=== PATIENT | female | born 1970 | race Caucasian/White ===

== ENCOUNTER 2016-11-15 05:14 | Emergency (ER) | payer OTHER ==
[2016-11-15 05:28] VITALS: TEMP 98.9; BMI 31.9
[2016-11-15] MEDS ORDERED: SODIUM CHLORIDE 1,000 ML IV STA (05:46)
[2016-11-15] MEDS ORDERED: morphine CARPU-JECT 4 MG/1 ML DISP.SYRIN IVPUSH ONE (05:46)
[2016-11-15] MEDS ORDERED: METOCLOPRAMIDE HCL INJECTION 10 MG/2 ML VIAL IVPB ONE (05:46)
[2016-11-15] MEDS ORDERED: METOCLOPRAMIDE HCL INJECTION 10 MG/2 ML VIAL ONE (05:52)
[2016-11-15] MEDS ORDERED: morphine CARPU-JECT 4 MG/1 ML DISP.SYRIN ONE (05:52)
--- NOTE | 2016-11-15 05:53 | PDOC ---
History of Present Illness - General Chief Complaint: Nausea/Vomiting Stated Complaint: NAUSEA,VOMITING Time Seen by Provider: 11/15/16 05:30 History Source: Patient Exam Limitations: No Limitations - History of Present Illness Travel History: No Initial Comments: 11/15/16 05:47 46yo Female patient presents to ED c/o abd pain, n/v. Patient reports hx gastric bypass in 2007, and having complications since surgery. She states she had been symptom free since 2013 until last week. Patient drove to [facility] where she had the surgery. She states findings of inflammed intestine. Patient d/c'd to home. Patient now reports her symptoms began 4am this morning with vomiting and epigastric abd pain. Pain severity 8.5/10 per patient. Timing/Duration: reports: getting worse, intermittent Quality: reports: moderate Abdominal Pain Onset Location: reports: epigastric Pain Radiation: reports: no radiation Activities at Onset: reports: eating Aggravating Factors: worse with: None, Defecation, Eating, Emotional upset, Exertion, [place], Movement, Voiding, Change in position Alleviating Factors: worse with: None, Belching, Shallow Breathing, Defecation, Eating, Holding Breath, Passing Gas, Change in Position, Rest, Voiding, Vomiting Past History - Travel Traveled outside of the country in the last 30 days: No Close contact w/someone who was outside of country & ill: No - Past Medical History Allergies/Adverse Reactions: Allergies Allergy/AdvReac Type Severity Reaction Status Date / Time shellfish derived Allergy Severe Difficulty Verified 11/15/16 07:29 Breathing moxifloxacin HCl Allergy Intermediate Hives Verified 11/15/16 07:29 [From Avelox] Home Medications: Ambulatory Orders Lisinopril [Prinivil] 20 mg PO DAILY 08/10/16 Nifedipine [Procardia Xl] 90 mg PO DAILY 08/10/16 Tramadol HCl 50 mg PO TID #10 tablet MDD 4 11/15/16 Anemia: No (in past) Asthma: No Cancer: No Cardiac Disorders: No CVA: No COPD: No CHF: No Dementia: No Diabetes: No (pre gastric bypass 2007) GI Disorders: No (past pud) Disorders: No HTN: Yes Hypercholesterolemia: No Liver Disease: No Seizures: No Thyroid Disease: No - Surgical History Abdominal Surgery: Yes (gastric bypasss 2007) Appendectomy: No Cardiac Surgery: No Cholecystectomy: No Lung Surgery: No Neurologic Surgery: No Orthopedic Surgery: No - Psycho/Social/Smoking Cessation Hx Suicidal Ideation: No Smoking History: Current every day smoker Have you smoked in the past 12 months: Yes Number of Cigarettes Smoked Daily: 5 Information on smoking cessation initiated: No Hx Alcohol Use: No Drug/Substance Use Hx: No Substance Use Type: Marijuana Hx Substance Use Treatment: No Abd/GI Specific PMHX - Complaint Specific PMHX Colitis: No Diverticulitis: No Gall Bladder Disease: No GERD: No Hepatitis: No Irritable Bowel Synd (IBS): No Pancreatitis: No GI Ulcer Disease: No Review of Systems - Review of Systems Able to Perform ROS?: Yes Is the patient limited Guyanese proficient: No Constitutional: No: Fever Respiratory: No: Shortness of Breath Cardiac (ROS): No: Chest Pain ABD/GI: Yes: Nausea, Vomiting, Other (Epigastric abdominal pain). No: Diarrhea : No: Burning, Dysuria, Hematuria Musculoskeletal: No: Back Pain Integumentary: No: Rash Neurological: No: Seizure, Tremors All Other Systems: Reviewed and Negative *Physical Exam - Vital Signs Last Vital Signs Temp Pulse Resp BP Pulse Ox 98.9 F 104 H 18 137/78 96 11/15/16 05:16 11/15/16 05:16 11/15/16 05:16 11/15/16 05:16 11/15/16 05:16 - Physical Exam Comments: 11/15/16 05:55 Patient tearful during examination. General Appearance: Yes: Nourished, Mild Distress Neck: positive: Trachea midline, Supple Respiratory/Chest: positive: Lungs Clear, Normal Breath Sounds Cardiovascular: positive: Regular Rhythm, Regular Rate Gastrointestinal/Abdominal: positive: Normal Bowel Sounds, Soft, Distended, Tenderness (+ Tenderness to epigastric region of abdomen. + Rebound. - [place]) Musculoskeletal: positive: Normal Inspection. negative: CVA Tenderness Extremity: positive: Normal Capillary Refill, Normal Inspection, Normal Range of Motion Integumentary: positive: Normal Color, Dry, Warm Neurologic: positive: engineering illustrator II-XII NML intact, Fully Oriented, Alert, Normal Mood/ Affect, Normal Response ED Treatment Course - LABORATORY CBC & Chemistry Diagram: 11/15/16 05:40 11/15/16 05:40 *DC/Admit/Observation/Transfer Diagnosis at time of Disposition: Abdominal pain Qualifiers: Abdominal location: generalized Qualified Code(s): R10.84 - Generalized abdominal pain - Discharge Dispostion Disposition: HOME Condition at time of disposition: Improved Admit: No - Prescriptions Prescriptions: Tramadol HCl 50 mg PO TID #10 tablet MDD 4 - Referrals Referrals: Doc Mott [Primary Care Provider] - Call tomorrow Robin Rivas DO [Staff Physician] - Call tomorrow - Patient Instructions Printed Discharge Instructions: [place] Diet, DI for Abdominal Pain-Adult Additional Instructions: Discharge Instructions: -Take medications as prescribed for nausea and pain if needed -Follow diet instructions -Follow up with referred GI doctor as soon as possible for further examination
[2016-11-15 06:04] LABS: EOSINOPHIL 4.4 % (0-4.5); MCH 25.8 pg (25.7-33.7); MCHC 31.6 g/dl (32.0-36.0); MEAN CELL VOLUME 81.7 fl (80-96); MEAN PLT VOLUME 8.2 fl (7.5-11.1); NEUTROPHILS 27.2 % (42.8-82.8); PLATELET COUNT 316 K/MM3 (134-434); RDW 16.8 % (11.6-15.6); WHITE BLOOD COUNT 3.4 K/mm3 (4.0-10.0)
--- NOTE | 2016-11-15 06:46 | PDOC ---
*Physical Exam - Vital Signs Last Vital Signs Temp Pulse Resp BP Pulse Ox 98.9 F 104 H 18 137/78 96 11/15/16 05:16 11/15/16 05:16 11/15/16 05:16 11/15/16 05:16 11/15/16 05:16 ED Treatment Course - LABORATORY CBC & Chemistry Diagram: 11/15/16 05:40 11/15/16 05:40 - ADDITIONAL ORDERS Additional order review: 11/15/16 05:40 RBC 4.98 MCV 81.7 MCHC 31.6 L RDW 16.8 H MPV 8.2 Neutrophils % 27.2 L D Lymphocytes % 58.8 H D Monocytes % 8.6 Eosinophils % 4.4 Basophils % 1.0 - Medications Given in the ED: ED Medications Discontinued Medications Generic Name Dose Route Start Last Admin Trade Name Freq PRN Reason Stop Dose Admin Sodium Chloride 1,000 mls @ 1,000 mls/hr 11/15/16 05:46 11/15/16 05:48 Normal Saline - IV 11/15/16 06:45 1,000 mls/hr ASDIR STA Administration Metoclopramide HCl 10 mg 11/15/16 05:46 11/15/16 05:48 Reglan Injection - IVPB 11/15/16 05:47 10 mg ONCE ONE Administration Morphine Sulfate 4 mg 11/15/16 05:46 11/15/16 05:48 Morphine Injection - IVPUSH 11/15/16 05:47 4 mg ONCE ONE Administration Medical Decision Making - Medical Decision Making 11/15/16 06:46 agree with care from SHARI Kennedy *DC/Admit/Observation/Transfer Diagnosis at time of Disposition: Abdominal pain - Discharge Dispostion Disposition: HOME Condition at time of disposition: Improved - Prescriptions Prescriptions: Tramadol HCl 50 mg PO TID #10 tablet MDD 4 - Referrals Referrals: Doc Mott [Primary Care Provider] - Call tomorrow Robin Rivas DO [Staff Physician] - Call tomorrow - Patient Instructions Printed Discharge Instructions: [place] Diet, DI for Abdominal Pain-Adult Additional Instructions: Discharge Instructions: -Take medications as prescribed for nausea and pain if needed -Follow diet instructions -Follow up with referred GI doctor as soon as possible for further examination
[2016-11-15 07:23] LABS: ALBUMIN 3.7 g/dl (3.4-5.0); AMYLASE 57 U/L (25-115); ANION GAP 9 (8-16); CALCIUM 8.2 mg/dL (8.5-10.1); CO2 26 mmol/L (21-32); CREATININE 0.8 mg/dL (0.55-1.02); GLUCOSE,RANDOM 115 mg/dL (74-106); SGOT/AST 102 U/L (15-37); SGPT/ALT 84 U/L (12-78)
[2016-11-15 07:25] LABS: ALK PHOS 87 U/L (45-117); BILIRUBIN,TOTAL 0.3 mg/dL (0.2-1.0)
--- NOTE | 2016-11-15 07:48 | PDOC ---
ED Treatment Course - LABORATORY CBC & Chemistry Diagram: 11/15/16 05:40 11/15/16 05:40 - ADDITIONAL ORDERS Additional order review: Laboratory Results 11/15/16 05:40 Sodium 144 Potassium 3.7 Chloride 109 H Carbon Dioxide 26 Anion Gap 9 BUN 7 D Creatinine 0.8 Creat Clearance w eGFR > 60 Random Glucose 115 H Calcium 8.2 L Total Bilirubin 0.3 AST 102 H D ALT 84 H Alkaline Phosphatase 87 Total Protein 8.0 Albumin 3.7 Total Amylase 57 Lipase 570 H 11/15/16 05:40 RBC 4.98 MCV 81.7 MCHC 31.6 L RDW 16.8 H MPV 8.2 Neutrophils % 27.2 L D Lymphocytes % 58.8 H D Monocytes % 8.6 Eosinophils % 4.4 Basophils % 1.0 - Medications Given in the ED: ED Medications Discontinued Medications Generic Name Dose Route Start Last Admin Trade Name Freq PRN Reason Stop Dose Admin Sodium Chloride 1,000 mls @ 1,000 mls/hr 11/15/16 05:46 11/15/16 05:48 Normal Saline - IV 11/15/16 06:45 1,000 mls/hr ASDIR STA Administration Metoclopramide HCl 10 mg 11/15/16 05:46 11/15/16 05:48 Reglan Injection - IVPB 11/15/16 05:47 10 mg ONCE ONE Administration Morphine Sulfate 4 mg 11/15/16 05:46 11/15/16 05:48 Morphine Injection - IVPUSH 11/15/16 05:47 4 mg ONCE ONE Administration Progress Note - Progress Note Progress Note: I have received report from SHARI Kennedy regarding this patient. Pt's initial chief complaint: abd pain, n/v Pt's work up completed prior to sign out: none Pt treatment given from prior staff: IV morphine, reglan and fluids Pt plan to be completed: Awaiting labs Dispo: Pending Medical Decision Making - Medical Decision Making A/P: 46 y/o female with abd pain, n/v x "a few days". The patient was initially evaluated by SHARI Kennedy, given pain medication, anti emetics and IV fluids. Awaiting results of labs. Lipase - 570 Will send for Gallbladder ultrasound Gallbladder ultrasound IMPRESSION: Hepatomegaly with diffuse fatty infiltration of the liver. There is no sonographic evidence of cholelithiasis or acute cholecystitis. Pt is feeling better. Will discharge to home with rx for tramadol for pain. Suggested she eat a bland diet until symptoms improve and f/u with her GI doctor or the referral provided for follow up as soon as possible. Pt instructed to return to the ER with any worsening or concerning symptoms. The patient verbalizes understanding of all instructions, has no further questions and is awaiting discharge. *DC/Admit/Observation/Transfer Diagnosis at time of Disposition: Abdominal pain Qualifiers: Abdominal location: generalized Qualified Code(s): R10.84 - Generalized abdominal pain - Discharge Dispostion Disposition: HOME Condition at time of disposition: Improved - Referrals Referrals: Doc Mott [Primary Care Provider] - Call tomorrow Robin Rivas DO [Staff Physician] - Call tomorrow - Patient Instructions Printed Discharge Instructions: DI for Abdominal Pain-Adult, [place] Diet Additional Instructions: Discharge Instructions: -Take medications as prescribed for nausea and pain if needed -Follow diet instructions -Follow up with referred GI doctor as soon as possible for further examination
[2016-11-15 10:12] LABS: URINE APPEARANCE SLCLOUDY; URINE BILIRUBIN NEGATIVE (NEGATIVE); URINE BLOOD NEGATIVE (NEGATIVE); URINE COLOR YELLOW; URINE GLUCOSE (UA) NEGATIVE (NEGATIVE); URINE KETONE NEGATIVE (NEGATIVE); URINE NITRITE NEGATIVE (NEGATIVE); URINE PROTEIN NEGATIVE (NEGATIVE); URINE UROBILINOGEN 4.0 E.U/dl E.U./dl (0.2-1.0)
[2016-11-15 10:14] LABS: URINE LEUK ESTERASE TRACE (NEGATIVE)
[2016-11-15 10:26] VITALS: BP 124/98; PULSE 72
[2016-11-15 10:31] LABS: URINE BACTERIA RARE /hpf (NONE SEEN); URINE HYALINE CAST 8 /lpf; URINE MUCUS MANY; URINE RBC 2 /hpf (0-3); URINE WBC 1 /hpf (3-5)
== END 2016-11-15 10:26 | disposition home or self-care (01) ==
LOC: JER 05:14
PROC: 3E033GC Introduction of Other Therapeutic Substance into Peripheral Vein, Percutaneous Approach (ICD-10-PCS; principal; 2016-11-15)
PROC: 3E033NZ Introduction of Analgesics, Hypnotics, Sedatives into Peripheral Vein, Percutaneous Approach (ICD-10-PCS; 2016-11-15)
PROC: 3E0337Z Introduction of Electrolytic and Water Balance Substance into Peripheral Vein, Percutaneous Approach (ICD-10-PCS; 2016-11-15)
DX: R10.84 Generalized abdominal pain (principal); Z98.84 Bariatric surgery status; F17.210 Nicotine dependence, cigarettes, uncomplicated; I10 Essential (primary) hypertension
CPT/HCPCS: 36415; 76705-TC; 80053; 81003; 81015; 82150; 83690; 85025; 96361; 96374; 96375; 99282-25

== ENCOUNTER 2020-07-26 14:47 | Emergency (ER) | payer OTHER ==
[2020-07-26 15:02] VITALS: BP 153/95; PULSE 59; BMI 25.8
--- NOTE | 2020-07-26 15:36 | PDOC ---
History of Present Illness - General Chief Complaint: Pain Stated Complaint: Pain Time Seen by Provider: 07/26/20 14:59 - History of Present Illness Initial Comments: HPI Pt is a a 50yo F with PMH HTN, pancreatitis, s/p gastric bypass, abdominoplasty, who presents with epigastric pain x 4 days. Pt reports epigastric and LLQ, 9.5/10, nonradiating, squeezing pain, not improved with Tylenol; denies any kn own triggers. Reports multiple prior hospitalizations in [place] for pancreatitis, where she improved with Zofran/Reglan, Protonix, and morphine/dilaudid. Reports multiple episodes of NBNB emesis, nausea; reports diarrhea/loose stools x3 days with a regular BM today; has been able to pass flatus. Denies f/c, chest pain, SOB, lightheadedness, dizziness, dysuria. Reports hx of endoscopy in ?2017 where she was found to have "lesions" that her doctor removed. 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 PCP: Blue Hodge PMH: see above PSH: see above Meds: lisinopril, nifedipine Allergies: shellfish Social: smokes 10 cigarettes/day, reports daily 1 pint of [place] Iced Tea - last drink 5 days ago, denies recent substance use - reports hx of marijuana and cocaine use. Review of Systems CONSTITUTIONAL: reports loss of appetite; denies fever, chills, diaphoresis, generalized weakness, malaise HEENT: denies rhinorrhea, nasal congestion, sore throat CARDIOVASCULAR: denies chest pain, palpitations, lightheadedness RESPIRATORY: denies cough, shortness of breath, wheezing, hemoptysis GASTROINTESTINAL: reports abdominal pain, nausea, vomiting, diarrhea; denies constipation, melena, hematochezia GENITOURINARY: denies dysuria, frequency, urgency, hematuria, flank pain MUSCULOSKELETAL: denies myalgia, arthralgia HEMATOLOGIC/IMMUNOLOGIC: denies easy bleeding, easy bruising ENDOCRINE: denies unexplained weight gain, unexplained weight loss NEUROLOGIC: denies headache, loss of consciousness, dizziness, unsteady gait, mental status changes, bladder or bowel incontinence SKIN: denies rash, itching, pallor Physical Exam General: awake, alert, fully oriented, in no acute distress, well developed, well nourished Head: normocephalic, atraumatic Eyes: PERRL, EOMI, anicteric sclera, conjunctiva clear ENT: Auricles normal inspection, hearing grossly normal, oropharynx clear without exudates, no nasal congestion, moist mucous membranes Neck: supple, normal ROM Lung: equal breath sounds b/l, CTA b/l, no crackles, wheezes; no distress, speaks full sentences Heart: RRR, normal S1, S2, no murmurs appreciated Abdomen: soft, TTP in epigastric and LUQ; normoactive bowel sounds, no guarding, rebound, masses Extremities: slight edema in bl LE (chronic), no erythema or tenderness, DP/PT pulses 2+ and symmetric, no clubbing, cyanosis Neuro: CN2-12 grossly intact, moves all extremities, normal speech, sensation intact Skin: warm, dry, normal skin turgor, capillary refill <2 seconds, no rashes or lesions noted MDM Pt is a a 50yo F with PMH HTN, pancreatitis, s/p gastric bypass, abdominoplasty, who presents with epigastric pain x 4 days. Vitals WNL DDx including but not limited to: pancreatitis, gastritis, PUD, SBO Workup: labs, ekg TX: IV fluids, pain control, Pepcid, Maalox EKG: sinus bradycardia, HR 55bpm, TX 170ms, QRS 80ms, QTc 457ms, no ST changes compared to previous EKG (2016) 07/26/20 17:28 Labs: no leukocytosis, no anemia, slight hypokalemia, no JACKELYN, LFTs WNL, lipase WNL Pt given Pepcid, Zofran, fluids - denies improvement in symptoms - Will reassess when all ordered medications given 07/26/20 18:55 Given Tylenol and Maalox - pt reports head it itchy, worried about allergic reaction; discontinued remaining Ofirmev - will order Benadryl, Zofran, morphine - will order CT a/p w/IV contrast; pt refuses PO contrast as she continues to report nausea - informed patient that we will give her additional anti-emetics, refused PO contrast Patient signed out to night team Pending CT a/p, reassess Past History - Medical History Allergies/Adverse Reactions: Allergies Allergy/AdvReac Type Severity Reaction Status Date / Time shellfish derived Allergy Severe Difficulty Verified 07/26/20 15:02 Breathing moxifloxacin HCl Allergy Intermediate Hives Verified 07/26/20 15:02 [From Avelox] Home Medications: Ambulatory Orders Lisinopril [Prinivil] 20 mg PO DAILY 08/10/16 Nifedipine [Procardia Xl] 90 mg PO DAILY 08/10/16 Tramadol HCl 50 mg PO TID #10 tablet MDD 4 11/15/16 Anemia: No (in past) Asthma: No Cancer: No Cardiac Disorders: No CVA: No COPD: No CHF: No Dementia: No Diabetes: No (pre gastric bypass 2007) GI Disorders: No (past pud) Disorders: No HTN: Yes Hypercholesterolemia: No Liver Disease: No Psychiatric Problems: Yes (etoh abuse) Seizures: No Thyroid Disease: No - Surgical History Abdominal Surgery: Yes (gastric bypasss 2007) Appendectomy: No Cardiac Surgery: No Cholecystectomy: No Lung Surgery: No Neurologic Surgery: No Orthopedic Surgery: No - Reproductive History Is Patient Now?: No - Psycho-Social/Smoking History Smoking History: Unknown if ever smoked Have you smoked in the past 12 months: Yes Number of Cigarettes Smoked Daily: 3 *Physical Exam - Vital Signs Last Vital Signs Temp Pulse Resp BP Pulse Ox 59 L 16 153/95 99 07/26/20 14:59 07/26/20 14:59 07/26/20 14:59 07/26/20 14:59 ED Treatment Course - LABORATORY CBC & Chemistry Diagram: 07/26/20 17:00 07/26/20 17:00 Discharge - Discharge Information Problems reviewed: Yes Clinical Impression/Diagnosis: Abdominal pain Qualifiers: Abdominal location: epigastric Qualified Code(s): R10.13 - Epigastric pain Condition: Unchanged/Unknown Disposition: ELOPED - Follow up/Referral Referrals: ON STAFF,NOT [Primary Care Provider] - - Patient Discharge Instructions - Post Discharge Activity
[2020-07-26] MEDS ORDERED: ONDANSETRON 4 MG/2 ML VIAL IVPUSH ONE ×2 (16:18→18:55)
[2020-07-26] MEDS ORDERED: LACTATED RINGERS SOLUTION 1000 ML INFUS.BAG IV ONE (16:18)
[2020-07-26] MEDS ORDERED: ACETAMINOPHEN 1000 MG/100 ML VIAL (NON FORMULARY) IVPB ONE (16:18)
[2020-07-26] MEDS ORDERED: MAG HYDROX/AL HYDROX/SIMETH -MYLANTA- ORAL SUSPENSION PO ONE (16:23)
[2020-07-26] MEDS ORDERED: FAMOTIDINE 20 MG/50 ML IVPB 20 MG/50 ML MG IVPB ONE ×2 (16:23→16:47)
--- NOTE | 2020-07-26 16:42 | PDOC ---
Documentation entered by Jozef Prakash SCRIBE, acting as scribe for Zaid Wise MD. Zaid Wise MD: This documentation has been prepared by the Dwain lazo Xhesika, SCRIBE, under my direction and personally reviewed by me in its entirety. I confirm that the documentation accurately reflects all work, treatment, procedures, and medical decision making performed by me. Attending Attestation - Resident Resident Name: Kristen Hurley - ED Attending Attestation I have performed the following: I have examined & evaluated the patient, The case was reviewed & discussed with the resident, I agree w/resident's findings & plan, Exceptions are as noted - HPI HPI: 07/26/20 15:40 The patient is a 50y/o F with a pmh of etoh abuse, HTN, pancreatitis, and gastric bypass (2007) who presents to the ED for LUQ abdominal pain/ epigastric pain. Pt describes her pain as 9.5/10 in severity, squeezing sensation, associated with nausea and vomiting. Pt reports her pain is similar to her previous pancreatitis. Pt states she has had multiple hospitalizations in the past for similar symptoms. Pt reports decreased appetite secondary to her pain. Pt states she has been taking Tylenol with no improvement of symptoms. Pt states she had a normal BM earlier today. Allergies: moxifloxacin HCl PCP: Dr. Hodge - Physicial Exam PE: 07/26/20 16:40 GENERAL: The patient is awake, alert, and fully oriented, Appears to be uncomfortable. HEAD: Normocephalic, atraumatic. EYES: extraocular movements intact, sclera anicteric, conjunctiva clear. ENT: Normal voice, Moist mucous membranes. NECK: Normal range of motion, supple LUNGS: Breath sounds equal, clear to auscultation bilaterally. No wheezes, no rhonchi, no rales. HEART: Regular rate and rhythm, normal S1 and S2 without murmur, rub or gallop. ABDOMEN: LUQ/eigatric tenderness, no rebound/guarding EXTREMITIES: Normal range of motion, no edema. NEUROLOGICAL: No facial assymetry, Normal speech, PSYCH: Normal mood, normal affect. SKIN: Warm, Dry, normal turgor, - Medical Decision Making 07/26/20 16:42 Differential for the patient's symptoms includes possible parotitis, gastritis Will obtain blood work, will treat with Pepcid, Maalox possibly morphine Will obtain CT of the abdomen Case signed out to evening team to reassess and disposition Discharge - Discharge Information Problems reviewed: Yes Clinical Impression/Diagnosis: Abdominal pain Qualifiers: Abdominal location: epigastric Qualified Code(s): R10.13 - Epigastric pain Condition: Unchanged/Unknown Disposition: ELOPED - Follow up/Referral Referrals: ON STAFF,NOT [Primary Care Provider] - - Patient Discharge Instructions - Post Discharge Activity
[2020-07-26] MEDS ORDERED: ACETAMINOPHEN INJECTION 100 ML IVPB ONE ×2 (16:47→18:02)
[2020-07-26 17:20] LABS: BASO % 0.5 % (0-2.0); EOS % 0.2 % (0-4.5); HEMATOCRIT 37.6 % (32.4-45.2); HEMOGLOBIN 12.1 GM/dL (10.7-15.3); LYMPH % 29.3 % (8-40); MCH 28.1 pg (25.7-33.7); MCHC 32.3 g/dl (32.0-36.0); MEAN CELL VOLUME 86.9 fl (80-96); MEAN PLT VOLUME 7.9 fl (7.5-11.1); MONO % 8.7 % (3.8-10.2); NEUT % 61.3 % (42.8-82.8); PLATELET COUNT 222 K/MM3 (134-434); RBC 4.32 M/mm3 (3.60-5.2); RDW 16.9 % (11.6-15.6); WHITE BLOOD COUNT 4.4 K/mm3 (4.0-10.0)
[2020-07-26 17:29] LABS: INR 1.28 (0.83-1.09); PROTHROMBIN TIME (PATIENT) 15.1 SEC (9.7-13.0)
[2020-07-26 17:32] LABS: ACTIVATED PTT 26.6 SECONDS (25.2-36.5)
[2020-07-26 17:50] LABS: ALBUMIN 3.8 g/dl (3.4-5.0); BILIRUBIN,TOTAL 0.7 mg/dL (0.2-1); BLOOD UREA NITROGEN 13.8 mg/dL (7-18); CALCIUM 9.2 mg/dL (8.5-10.1); CREATININE 0.8 mg/dL (0.55-1.3); POTASSIUM 3.3 mmol/L (3.5-5.1)
[2020-07-26] MEDS ORDERED: MAG HYDROX/AL HYDROX/SIMETH 30 ML UNIT-DOSE CUP ONE (18:02)
[2020-07-26] MEDS ORDERED: morphine CARPU-JECT 2 MG/1 ML DISP.SYRIN IVPUSH ONE (18:55)
--- NOTE | 2020-07-26 20:01 | PDOC ---
*Physical Exam - Vital Signs Last Vital Signs Temp Pulse Resp BP Pulse Ox 59 L 16 153/95 99 07/26/20 14:59 07/26/20 14:59 07/26/20 14:59 07/26/20 14:59 ED Treatment Course - LABORATORY CBC & Chemistry Diagram: 07/26/20 17:00 07/26/20 17:00 - ADDITIONAL ORDERS Additional order review: Laboratory Results 07/26/20 07/26/20 07/26/20 17:00 17:00 17:00 PT with INR 15.10 H INR 1.28 H PTT (Actin FS) 26.6 Sodium 137 Potassium 3.3 L Chloride 101 Carbon Dioxide 28 Anion Gap 8 BUN 13.8 Creatinine 0.8 Est GFR (CKD-EPI)AfAm 98.93 Est GFR (CKD-EPI)NonAf 85.36 Random Glucose 79 Calcium 9.2 Magnesium 2.0 Total Bilirubin 0.7 AST 53 H ALT 56 Alkaline Phosphatase 76 Total Protein 8.0 Albumin 3.8 Lipase 288 Beta HCG, Quant 1.7 Blood Type AB POSITIVE Antibody Screen Negative 07/26/20 17:00 RBC 4.32 MCV 86.9 MCHC 32.3 RDW 16.9 H MPV 7.9 Neutrophils % 61.3 D Lymphocytes % 29.3 D Monocytes % 8.7 Eosinophils % 0.2 D Basophils % 0.5 - Medications Given in the ED: ED Medications Discontinued Medications Generic Name Dose Route Start Last Admin Trade Name Freq PRN Reason Stop Dose Admin Acetaminophen 1,000 mg 07/26/20 16:18 07/26/20 18:08 Ofirmev Injection - IVPB 07/26/20 16:19 1,000 mg ONCE ONE Administration Al Hydroxide/Mg Hydroxide 30 ml 07/26/20 16:23 07/26/20 18:08 Mylanta Suspension - PO 07/26/20 16:24 30 ml ONCE ONE Administration Famotidine/Sodium Chloride 20 mg in 50 mls @ 100 mls/hr 07/26/20 16:23 07/26/20 16:55 Pepcid 20 Mg Premixed Ivpb - IVPB 07/26/20 16:52 100 mls/hr ONCE ONE Administration Lactated Ringer's 1,000 ml 07/26/20 16:18 07/26/20 16:54 Lactated Ringers Solution IV 09/14/20 16:19 1,000 ml ONCE ONE Administration Ondansetron HCl 4 mg 07/26/20 16:18 07/26/20 16:54 Zofran Injection IVPUSH 07/26/20 16:19 4 mg ONCE ONE Administration Medical Decision Making - Medical Decision Making 07/26/20 19:00 Pt received on s/o from Dr. Kristen Hurley. This is a 50F hx of pancreatitis presenting today with nausea, vomiting, and abdominal pain for the past 4 days. No fever. Lipase wnl. CTAP w/ IV contrast pending. Pain control. 07/26/20 20:00 Pt observed by charge nurse to be removing IV from her arm and leaving the ED prior to evaluation and work up completion. Discharge - Discharge Information Problems reviewed: Yes Clinical Impression/Diagnosis: Abdominal pain Qualifiers: Abdominal location: epigastric Qualified Code(s): R10.13 - Epigastric pain Condition: Unchanged/Unknown Disposition: ELOPED - Admission No - Follow up/Referral Referrals: ON STAFF,NOT [Primary Care Provider] - - Patient Discharge Instructions - Post Discharge Activity
[2020-07-26] MEDS ORDERED: MORPHINE SULFATE 2 MG/ML VIAL ONE (20:14)
--- NOTE | 2020-07-27 09:28 | EKG ---
Test Reason : Blood Pressure : / mmHG Vent. Rate : 055 BPM Atrial Rate : 055 BPM P-R Int : 170 ms QRS Dur : 080 ms QT Int : 478 ms P-R-T Axes : 027 019 052 degrees QTc Int : 457 ms SINUS BRADYCARDIA CANNOT RULE OUT ANTERIOR INFARCT , AGE UNDETERMINED ABNORMAL ECG WHEN COMPARED WITH ECG OF 08-AUG-2016 06:49, VENT. RATE HAS DECREASED BY 29 BPM Confirmed by MD SOLANGE, IRON ([id number]) on 07/27/2020 9:28:04 AM Referred By: Confirmed By:IRON NARVAEZ MD
== END 2020-07-26 20:40 | disposition left against medical advice (07) ==
LOC: JER 14:47
PROC: 3E033NZ Introduction of Analgesics, Hypnotics, Sedatives into Peripheral Vein, Percutaneous Approach (ICD-10-PCS; principal; 2020-07-26)
PROC: 3E033GC Introduction of Other Therapeutic Substance into Peripheral Vein, Percutaneous Approach (ICD-10-PCS; 2020-07-26)
DX: R10.13 Epigastric pain (principal)
CPT/HCPCS: 36415; 80053; 83690; 83735; 84702; 85025; 85610; 85730; 86850; 86900; 86901; 93005; 93010; 99285-25; J0131

== ENCOUNTER 2021-10-23 11:19 | Emergency (ER) | payer OTHER ==
[2021-10-23 11:43] VITALS: BP 102/53; PULSE 88; TEMP 97; BMI 58.2
[2021-10-23] MEDS ORDERED: METHOCARBAMOL 500 MG TABLET PO ONE (12:22)
[2021-10-23] MEDS ORDERED: LIDOCAINE 5% TOPICAL PATCH TP ONE (12:22)
[2021-10-23] MEDS ORDERED: KETOROLAC TROMETHAMINE 60 MG/2 ML VIAL IM ONE (12:22)
[2021-10-23] MEDS ORDERED: LIDOCAINE 5% TOPICAL PATCH ONE (12:49)
[2021-10-23] MEDS ORDERED: METHOCARBAMOL 500 MG TABLET ONE (12:49)
[2021-10-23] MEDS ORDERED: KETOROLAC TROMETHAMINE 60 MG/2 ML VIAL ONE (12:49)
[2021-10-23] MEDS ORDERED: LIDOCAINE PATCH REMOVAL MC SCH (22:00)
== END 2021-10-23 15:16 | disposition home or self-care (01) ==
LOC: JERFT 11:19 → JER 11:19 → JERFT 15:16
PROC: 3E023GC Introduction of Other Therapeutic Substance into Muscle, Percutaneous Approach (ICD-10-PCS; principal; 2021-10-23)
DX: M54.42 Lumbago with sciatica, left side (principal)
CPT/HCPCS: 72100-TC-FY; 99284-25

== ENCOUNTER 2022-09-12 20:37 | Inpatient (IN) | payer OTHER ==
[2022-09-12 21:39] VITALS: BMI 37.5
[2022-09-12] MEDS ORDERED: IBUPROFEN 600 MG TABLET (FP) PO PRN (22:23)
[2022-09-12] MEDS ORDERED: NICOTINE POLACRILEX 2 MG GUM BUC PRN (22:23)
[2022-09-12] MEDS ORDERED: BISMUTH SUBSALICYLATE 524 MG/30 ML PO PRN (22:23)
[2022-09-12] MEDS ORDERED: MAG HYDROX/AL HYDROX/SIMETH 30 ML UNIT-DOSE CUP PO PRN (22:23)
[2022-09-12] MEDS ORDERED: DICYCLOMINE HCL 10 MG CAPSULE PO PRN (22:23)
[2022-09-12] MEDS ORDERED: cloNIDine HCL 0.1 MG TABLET PO PRN (22:23)
[2022-09-12] MEDS ORDERED: MAGNESIUM CITRATE 300 ML BOTTLE PO PRN (22:23)
[2022-09-12] MEDS ORDERED: LOPERAMIDE HCL 2 MG CAPSULE PO PRN (22:23)
[2022-09-12] MEDS ORDERED: hydrOXYzine PAMOATE 25 MG CAPSULE (FP) PO PRN (22:23)
[2022-09-12] MEDS ORDERED: IBUPROFEN 400 MG TABLET (FP) PO PRN (22:23)
[2022-09-12] MEDS ORDERED: BENZOCAINE/MENTHOL (CHLORASEPTIC ) LOZENGE MM PRN (22:23)
[2022-09-12] MEDS ORDERED: chlordiazePOXIDE HCL 25 MG CAPSULE PO PRN (22:23)
[2022-09-12] MEDS ORDERED: ONDANSETRON *ODT* 4 MG TABLET SL PRN (22:23)
[2022-09-12] MEDS ORDERED: MAGNESIUM HYDROX 2400MG/30ML ORAL SUSPENSION 30 ML CUP PO PRN (22:23)
[2022-09-12] MEDS ORDERED: ACETAMINOPHEN 325 MG TABLET (FP) PO PRN ×2 (22:23)
[2022-09-12] MEDS ORDERED: NALOXONE HCL (KLOXXADO) 8 MG SPRAY NS PRN (22:23)
[2022-09-12] MEDS ORDERED: METHOCARBAMOL 500 MG TABLET PO PRN (22:23)
[2022-09-12] MEDS ORDERED: methaDONE HCL 10 MG TABLET (FOR DETOX USE ONLY) PO ONE (23:33)
[2022-09-12] MEDS: chlordiazePOXIDE HCL 25 MG CAPSULE PO SCH (23:35)
[2022-09-12] MEDS: NICOTINE 10 MG CARTRIDGE (INHALER) IH PRN (23:58)
[2022-09-13] MEDS: chlordiazePOXIDE HCL 25 MG CAPSULE PO SCH ×3 (05:19→18:03)
[2022-09-13] MEDS: INSULIN SLIDING SCALE (NOVOLOG) 1 VIAL SQ SCH ×2 (06:07→17:16)
[2022-09-13] MEDS ORDERED: INSULIN SLIDING SCALE (NOVOLOG) 1 VIAL SQ SCH (07:00)
[2022-09-13 08:54] VITALS: RESP 18
[2022-09-13] MEDS: PRENATAL VITAMINS W/ FOLIC ACID TABLET (FP) PO SCH (10:11)
[2022-09-13] MEDS: NICOTINE 14 MG/24 HOURS TOPICAL PATCH TD SCH (10:14)
[2022-09-13] MEDS: NICOTINE 10 MG CARTRIDGE (INHALER) IH PRN (10:14)
[2022-09-13] MEDS: LISINOPRIL 20 MG TABLET PO SCH (12:39)
[2022-09-13 13:21] LABS: HEMATOCRIT 41.1 % (32.4-45.2); HEMOGLOBIN 13.8 GM/dL (10.7-15.3); MCH 35.2 pg (25.7-33.7); MCHC 33.6 g/dl (32.0-36.0); MEAN CELL VOLUME 104.9 fl (80-96); MEAN PLT VOLUME 8.6 fl (7.5-11.1); PLATELET COUNT 145 10^3/uL (134-434); RBC 3.92 M/mm3 (3.60-5.2); RDW 13.7 % (11.6-15.6); WHITE BLOOD COUNT 4.2 K/mm3 (4.0-10.0)
[2022-09-13 13:31] LABS: CALCIUM 8.6 mg/dL (8.5-10.1)
[2022-09-13 13:34] LABS: BLOOD UREA NITROGEN 6.1 mg/dL (7-18)
[2022-09-13 13:36] LABS: BILIRUBIN,TOTAL 0.4 mg/dL (0.2-1); CREATININE 0.6 mg/dL (0.55-1.3)
[2022-09-13 13:37] LABS: TOT PROT 7.1 g/dl (6.4-8.2)
[2022-09-13] MEDS ORDERED: LORazepam 1 MG TABLET PO PRN (17:15)
[2022-09-13] MEDS ORDERED: LORazepam 1 MG TABLET PO ONE (17:48)
[2022-09-13] MEDS ORDERED: MELATONIN 5 MG TABLETS PO SCH (22:00)
[2022-09-13] MEDS ORDERED: THIAMINE HCL 100 MG TABLET (FP) PO SCH (22:00)
[2022-09-13] MEDS: LORazepam 2 MG TABLET PO SCH (22:07)
[2022-09-14] MEDS ORDERED: chlordiazePOXIDE HCL 25 MG CAPSULE PO SCH (05:00)
[2022-09-14] MEDS: LORazepam 2 MG TABLET PO SCH (05:38)
[2022-09-14 06:09] VITALS: TEMP 96.9
[2022-09-14] MEDS: INSULIN SLIDING SCALE (NOVOLOG) 1 VIAL SQ SCH (08:02)
[2022-09-14 08:36] VITALS: BP 133/76; PULSE 64
[2022-09-14] MEDS ORDERED: NIFEdipine E.R. 90 MG TABLET PO SCH (10:00)
[2022-09-14] MEDS ORDERED: methaDONE HCL 10 MG TABLET (FOR DETOX USE ONLY) PO ONE (10:00)
[2022-09-14] MEDS: PRENATAL VITAMINS W/ FOLIC ACID TABLET (FP) PO SCH (10:17)
[2022-09-14] MEDS: LISINOPRIL 20 MG TABLET PO SCH (10:17)
[2022-09-14] MEDS: NICOTINE 14 MG/24 HOURS TOPICAL PATCH TD SCH (10:20)
[2022-09-15] MEDS ORDERED: chlordiazePOXIDE HCL 10 MG CAPSULE PO PRN
[2022-09-15] MEDS ORDERED: LORazepam 1 MG TABLET PO SCH (05:00)
[2022-09-15] MEDS ORDERED: chlordiazePOXIDE HCL 10 MG CAPSULE PO SCH (05:00)
[2022-09-16] MEDS ORDERED: LORazepam 0.5 MG TABLET PO PRN
[2022-09-16] MEDS ORDERED: LORazepam 0.5 MG TABLET PO SCH (05:00)
[2022-09-16] MEDS ORDERED: chlordiazePOXIDE HCL 10 MG CAPSULE PO SCH (05:00)
[2022-09-16] MEDS ORDERED: methaDONE HCL 10 MG TABLET (FOR DETOX USE ONLY) PO ONE (10:00)
[2022-09-17] MEDS ORDERED: LORazepam 0.5 MG TABLET PO ONE (05:00)
[2022-09-17] MEDS ORDERED: chlordiazePOXIDE HCL 10 MG CAPSULE PO ONE (05:00)
== END 2022-09-14 01:13 | disposition left against medical advice (07) | DRG 770 ==
LOC: YASAS 20:37 → Y3N 22:41
PROVIDERS: ADMIT Allergy & Immunology; ATTEND Surgery
PROC: HZ2ZZZZ Detoxification Services for Substance Abuse Treatment (ICD-10-PCS; principal; 2022-09-12)
DX: F11.23 Opioid dependence with withdrawal (principal); F10.230 Alcohol dependence with withdrawal, uncomplicated; F13.20 Sedative, hypnotic or anxiolytic dependence, uncomplicated; F17.210 Nicotine dependence, cigarettes, uncomplicated; I10 Essential (primary) hypertension; E11.9 Type 2 diabetes mellitus without complications; Z87.19 Personal history of other diseases of the digestive system; Z88.8 Allergy status to other drugs, medicaments and biological substances; Z91.013 Allergy to seafood
CPT/HCPCS: 36415; 80053; 81025; 82962; 85027; 86780; 93005; 93010; C9803-CS; U0003; U0005